=== PATIENT | male | born 1995 | race Hispanic/Latino ===

== ENCOUNTER 2025-08-31 07:12 | Day surgery (SDC) | payer MEDICARE ==
[2025-08-30 14:29] LABS: IMMATURE GRANULOCYTE ABSOLUTE 0.05 K/uL (0-1); NUCLEATED RED BLOOD CELLS 0.0 % (0.0-0.19); PLATELET COUNT (AUTO) 228 K/uL (130-400); RED BLOOD CELL COUNT(AUTO) 4.87 MIL/uL (4.50-6.20); RED CELL DISTRIBUTION WIDTH 11.6 % (11.0-15.5); WHITE BLOOD COUNT (AUTO) 6.4 K/uL (4.8-10.8)
[2025-08-30 14:47] VITALS: BP 147/70; PULSE 66; RESP 18; TEMP 98.3
[~2025-08-31] VITALS: Ht 172.7 cm; Wt 96.6 kg
[2025-08-31] VITALS (16 sets, daily range): BP systolic 113–132; BP diastolic 67–76; PULSE 51–81; RESP 14–18; TEMP 97.4–97.9
[2025-08-31 07:56] LABS: CREATININE 0.9 mg/dL (0.5-1.3); GLOMERULAR FILTR. RATE CALC 119.0 mL/min (>90); GLUCOSE,RANDOM 99.0 mg/dL (70-105); SODIUM SERUM 140.0 mmol/L (136-145); UREA NITROGEN, BLOOD 15.0 mg/dL (7-18)
[2025-08-31] MEDS: LACTATED RINGERS 1000ML 1,000 ML IV ONE (08:33)
[2025-08-31] MEDS ORDERED: LIDOCAINE PF 100MG/5ML (2%) SYRINGE 5ML ONE (12:07)
[2025-08-31] MEDS ORDERED: NEOSTIGMINE METHYLSULFATE 1MG/ML IV ONE (12:08)
[2025-08-31] MEDS ORDERED: MIDAZOLAM HCL 1 MG/ML 2ML VIAL ONE (12:08)
[2025-08-31] MEDS ORDERED: GLYCOPYRROLATE 0.2 MG/ML 5 ML VIAL ONE (12:08)
[2025-08-31] MEDS ORDERED: HYDR-4060 PO (13:59)
--- NOTE | 2025-08-31 15:08 | NUR ---
BOTH PT AND SPOUSE GIVEN VERBAL AND WRITTEN DISCHARGE INSTRUCTIONS IV REMOVED SITE ASYMPTOMATIC. PT TAKEN OUT VIA WHEELCHAIR SPOUSE DRIVING.
--- NOTE | 2025-09-06 19:00 | OP ---
Operative Note: DATE OF PROCEDURE: 08/31/25 SURGEON: TERRIE MATT MD TOWEL FOLDER: balwinder becerra ANESTHESIA: general ANESTHESIOLOGIST/FLEET COORDINATOR: leeann price PREOPERATIVE DIAGNOSIS: perianal abscess POSTOPERATIVE DIAGNOSIS: perianal abscess; hemorrhoid SYNOPSIS: left superficial perianal abscess, right external hemorrhoid (9 o'clock) PROCEDURE: Exam under anesthesia, Incisional and drainage of Left perianal abscess ESTIMATED BLOOD LOSS: 30 ml INDICATIONS: 30-year-old male who was initially evaluated in my office with complaints of a recurrent perianal abscess. I placed him on antibiotics when he had his most recent flare up and I decided to bring him to the operating room for an incision and drainage of the perianal abscess along with the exam under anesthesia. Informed consent was obtained prior to the operation which included a discussion about bleeding, infection, recurrence of the perianal abscess, and possible injury to the anal sphincters. DESCRIPTION OF PROCEDURE: The patient was taken to the operating room placed on the operating table in supine position. Next general anesthesia was induced and the patient was intubated. He was placed in stirrups in the lithotomy position. His buttocks groin thighs and penis were all prepped and draped in a sterile fashion. A time-out was called and the patient's identity, procedure and preoperative anti biotics were confirmed. I performed an exam under anesthesia. I carefully inspected each quadrant of the anal canal. I do not detect any fistulas between the left perianal abscess in the anal canal. I did notice that he had a right external hemorrhoid located in the 9 o'clock position. Afterwards I opened up the area of the abscess that has been previously draining a couple of days earlier. I made two counter incisions along the distal most portion part of the abscess cavity. I took cultures of some of the purulent material that was evacuated from the abscess cavity. I mainly broke up loculations in the abscess cavity. I threaded to small red vessel loops through each of these two counter incisions. These were tied down. I irrigated the abscess cavity with normal saline. I packed the central incision and counter incisions with quarter-inch iodoform packing strips for hemostasis. A sterile dressing was applied. Sponge, needle instrument counts were accurate. The patient was taken to recovery room in stable condition after he was extubated. TERRIE MATT MD Sep 06, 2025 18:59
== END 2025-08-31 15:17 | disposition home or self-care (01) ==
LOC: DAH 07:12
PROVIDERS: ATTEND Surgery
DX: K61.0 Anal abscess (principal); K64.4 Residual hemorrhoidal skin tags; Z90.49 Acquired absence of other specified parts of digestive tract; Z79.899 Other long term (current) drug therapy
CPT/HCPCS: 85025; 36415 ×2; 46050; 87070; 80048; 87076; 87086; 87186; 87205; A6260; J1100; J1885; A4663; J7120; J3010 ×2; J3490 ×3; J2003; J2250; J2704; J2405; J2710; J0690; A4215; A4213; A4222; A4221; A4216; A4450; A4223 ×2